=== PATIENT | male | born 1955 | race Caucasian/White ===

== ENCOUNTER → 2021-06-05 | Day surgery (SDC) | payer BC ==
[~2021-06-05] MED LIST: COUMADIN3 MG PO; LOPRESSOR 25 MG25 MG PO; PROTONIX40 MG PO; SINGULAIR10 MG PO
== END | disposition home or self-care (01) ==
LOC: OR 06-04 11:45
DX: Z12.11 Encounter for screening for malignant neoplasm of colon (principal); K57.30 Diverticulosis of large intestine without perforation or abscess without bleeding; K64.1 Second degree hemorrhoids; Z86.010 Personal history of colon polyps; I10 Essential (primary) hypertension; D68.32 Hemorrhagic disorder due to extrinsic circulating anticoagulants; K21.00 Gastro-esophageal reflux disease with esophagitis, without bleeding; E66.3 Overweight; Z86.718 Personal history of other venous thrombosis and embolism; Z68.25 Body mass index [BMI] 25.0-25.9, adult; Z79.01 Long term (current) use of anticoagulants; Z79.899 Other long term (current) drug therapy; Z82.49 Family history of ischemic heart disease and other diseases of the circulatory system
CPT/HCPCS: J2001; J2704; J7040